=== PATIENT | female | born 1965 | race Caucasian/White ===

== ENCOUNTER 2016-09-24 12:27 | Emergency (ER) | payer OTHER ==
--- NOTE | 2016-09-24 12:46 | EDPHY ---
H & P Stated Complaint: Fell traversing across river; injury to R wrist,contusions to face,L arm. N Time Seen by Provider: 09/24/16 12:38 HPI/ROS: CHIEF COMPLAINT: Mechanical fall, multiple abrasions, right wrist pain HISTORY OF PRESENT ILLNESS: The patient presents to the ED after mechanical fall. She reportedly was rock climbing and slipped after the climb. She fell from approximately 3-4 feet on loose gravel. The patient sustained multiple abrasions to her face, arm and back. The patient's primary complaint is right wrist pain and deformity. The patient denies any associated numbness or weakness. She has pain with movement. The patient did not strike her head or lose consciousness. She has no complaints of additional extremity pain. She was able to ambulate after the fall. The patient denies significant past medical history. The patient takes no blood thinners or anti-platelet medications. REVIEW OF SYSTEMS: A comprehensive 10 point review of systems is otherwise negative aside from elements mentioned in the history of present illness. Source: Patient Exam Limitations: No limitations - Personal History LMP (Females 10-55): Post Menopausal Current Tetanus Diphtheria and Acellular Pertussis (TDAP): Yes - Medical/Surgical History PMH: Past medical history: Noncontributory - Family History Significant Family History: No pertinent family hx - Social History Smoking Status: Never smoked - Physical Exam Exam: General Appearance: Alert, no distress Head: Superficial abrasions, no hematoma, no bony tenderness Eyes: Pupils equal, round, reactive ENT, Mouth: No hemotympanum, no oral trauma Neck: Nontender, trachea midline Respiratory: No chest wall tender, subcutaneous air, lungs clear bilaterally Cardiovascular: Regular rate and rhythm Abdomen: Abdomen is soft and nontender, pelvis stable Skin: Multiple superficial extremity abrasions Back: No midline T/L/S pain Extremities: Tenderness, deformity, swelling noted to the right wrist Neurological: A&Ox3, normal motor function, normal sensory exam Constitutional: Initial Vital Signs Temperature (C) 36.7 C 09/24/16 12:30 Heart Rate 85 09/24/16 12:30 Respiratory Rate 18 09/24/16 12:30 Blood Pressure 137/86 H 09/24/16 12:30 O2 Sat (%) 99 09/24/16 12:30 O2 Delivery Mode Room Air Allergies/Adverse Reactions: No Known Allergies Allergy (Unverified 09/24/16 12:34) Home Medications: Medication Instructions Recorded oxyCODONE IR [Oxycodone Ir (*)] 5 - 10 mg PO Q6 PRN #15 tab 09/24/16 Medical Decision Making - Diagnostics Imaging Results: Imaging Impressions Wrist X-Ray 09/24/16 12:36 Impression: Complex distal right radial metaphyseal fracture with intra- articular involvement and dorsal angulation with displacement. Wrist X-Ray 09/24/16 13:27 Impression: 1. Good alignment, post reduction, complex distal right radial fracture with intra-articular involvement. Procedures: GENERAL FRACTURE REDUCTION Procedure: Reduction of angulated distal radius fracture Time-out completed immediately before the procedure. IV established. O2 administered. Placed on pulse oximeter and ETCO2 monitor. Neurovascular exam intact pre-procedure. Given hematoma block for pain. The right intra-articular comminuted distal radius fracture was reduced using traction dorsal pressure. Reassessed post-procedure. Neurovascular status intact-Normal Motor and sensory exam. Exam indicated reduction. Confirmed reduction on X-ray. Splint applied by myself. The procedure was performed by myself, Dr. Kaden Kendrick. ED Course/Re-evaluation: The patient presents to the ED after mechanical mechanical fall with an obvious wrist deformity. X-ray does demonstrate a complex intra-articular fracture with a significant amount of dorsal angulation and displacement. The patient was verbally consented to undergo a hematoma block with closed reduction. The patient tolerated the procedure well. While she does have multiple abrasions she has no additional injury of a traumatic injury. The patient was re-evaluated at 2:00 p.m. by myself. She is neurologically intact. She will be discharged home and follow up with our on-call orthopedic surgeon Dr. Bairon Fraire to evaluate what additional therapy may be indicated. The patient has been informed that she has an intra-articular fracture which may require further operative intervention. Differential Diagnosis: Differential diagnosis considered includes fracture, sprain, dislocation, neurovascular injury Departure - Departure Disposition: Home, Routine, Self-Care Clinical Impression: Distal radius fracture, right Qualifiers: Encounter type: initial encounter Fracture type: closed Fracture morphology: other intra-articular Qualified Code(s): S52.571A - Other intraarticular fracture of lower end of right radius, initial encounter for closed fracture Condition: Good Instructions: Wrist Fracture in Adults (ED) Additional Instructions: 1. Please ice as directed. 2. Please follow up with Dr. Bairon Fraire our on-call orthopedic surgeon for a recheck next week. Please contact his office on Monday to schedule an ER follow-up visit. You do have a complex intra-articular wrist fracture. Further treatment may be indicated and should be reviewed with the orthopedic surgeon. Please wear splint until seen in follow-up. 3. Tylenol as needed for pain. 4. Oxycodone as needed for severe pain. Referrals: Bairon Fraire MD [Medical Doctor] - As per Instructions
[2016-09-24 14:27] VITALS: BP 123/78; PULSE 83; RESP 16; TEMP 98.2; O2SAT 96
== END 2016-09-24 14:27 | disposition home or self-care (01) ==
PROC: 0PSHXZZ Reposition Right Radius, External Approach (ICD-10-PCS; principal; 2016-09-24)
DX: S52.571A Other intraarticular fracture of lower end of right radius, initial encounter for closed fracture (principal); W17.89XA Other fall from one level to another, initial encounter; Y99.8 Other external cause status; Y93.31 Activity, mountain climbing, rock climbing and wall climbing